=== PATIENT | female | born 1945 | race Caucasian/White ===

== ENCOUNTER 2022-04-07 12:24 | Inpatient (IN) | payer MEDICARE, MEDICAID, SELFPAY ==
[2022-04-07 12:46] VITALS: BP 190/50; PULSE 102; TEMP 36.3; O2SAT 96
--- NOTE | 2022-04-07 13:32 | P.HPPS_ITS ---
HPI Date of Service: 04/07/22 Chief Complaint: Major Depressive D/O Recurrent Episode Etc Sources of Information: patient interviewed, chart reviewed and crisis/core team assessment reviewed HPI Subjective Notes: Baptiste Warning and Conditional Voluntary Narrative: The patient is a 76-year-old female, , mother of 2 adult children, living alone, with a very long history of major depressive disorder recurrent episode with several prior admissions into the hospital and state hospitals. She had been on disability since she was an adult. The patient reported that she has been stable for several years and see me per main and recently, she had an appointment with a prescriber and started on citalopram and she reported that for the 1st 2 or 3 days she was doing great but then later on she complained of racing thoughts increased energy and she stop it since she review the booklet that she cannot use tricyclic antidepressants with SSRIs. The patient reported that she started getting depressed on October last year with depressed mood, anhedonia lack of energy and later on she reported increased anxiety. She has reported sporadic episodes of racing thoughts, increased irritability, increased psychomotor agitation and poor sleep. She adamantly denied auditory hallucinations visual hallucinations or paranoia. During the intake interview, the patient reported the symptoms she has episodes of ballistic movements and spontaneous crying and yelling. While we were interviewing her she performed very dramatically a couple of times that the behavior is a peer since we were not paying attention to her. She walked herself into the emergency room and reported that he was having suicidal thoughts. Since she was not able to contract for safety was transferring to this facility for psychiatric stabilization. Past Psychiatric History: The patient reported that she had a lengthy history of major depressive disorder with several admissions into the hospital, more than 20 and even 3 admissions for long-term on state hospitals at [facility] and [facility]. She has an appointment for another provider at [facility]. Medical Evaluation Reviewed: Yes Diagnostics Vital Signs (24Hr): Vital Signs - 24 hr 04/07/22 12:46 Temperature 97.4 F Pulse Rate 102 H Blood Pressure 190/50 H Pulse Oximetry 96 Oxygen Delivery Method Room Air Meds/Allergies Meds Home Medications Medication Instructions Recorded Confirmed Type Cardizem CD 240 mg PO DAILY 04/07/22 04/07/22 History citalopram 20 mg PO DAILY 04/07/22 04/07/22 History desipramine 50 mg tablet 50 mg PO BEDTIME 04/07/22 04/07/22 History hydroxyzine HCl 25 mg tablet 25 mg PO BEDTIME 04/07/22 04/07/22 History oxybutynin chloride 5 mg 5 mg PO DAILY 04/07/22 04/07/22 History tablet,extended release 24 hr rosuvastatin 10 mg tablet 10 mg PO DAILY 04/07/22 04/07/22 History Allergies Allergies Allergy/AdvReac Type Severity Reaction Status Date / Time quetiapine [From Seroquel] Allergy Itching Verified 04/07/22 14:36 sulfamethoxazole Allergy Itching Verified 04/07/22 14:36 [From Bactrim] trazodone Allergy Weakness Verified 04/07/22 14:36 trimethoprim [From Bactrim] Allergy Itching Verified 04/07/22 14:36 baclofen AdvReac Shakiness Verified 04/07/22 14:36 ibuprofen AdvReac Abdominal Verified 04/07/22 14:36 Pain nitrofurantoin AdvReac Weakness Verified 04/07/22 14:36 omeprazole AdvReac Unknown Verified 04/07/22 14:36 ranitidine [From Zantac] AdvReac Weakness Verified 04/07/22 14:36 Mental Status Exam Mental Status Exam Patient Appearance: Appropriate Patient Orientation: Person and Situation Level of Consciousness: Awake and Appropriate Patient Behavior: Guarded and Passive Mood Description: Appropriate and Depressed Affect Description: Constricted and Nervous Patient Cognition Impaired: No Ability to Follow Directions: Good Speech Pattern: Clear Hallucinations: None Delusions: Not Present Thought Process: Linear Thought Content: positive for [place] and positive for Circumstantial Judgement: Fair Assessment & Plan Assessment & Plan (1) Major depressive disorder: Status: Acute Code(s): F32.9 - Major depressive disorder, single episode, unspecified Plan The patient is an elderly female with a past history of major depressive disorder with several prior admissions into the hospital with some cluster B personality traits admitted for exacerbation of depression in the context of medication changes. She has been decompensating since October last year. Plan 1. Gather collateral information. 2. 50 minutes checks. 3. Start this imipramine 25 mg p.o. q.h.s. for the next 3 days. 4. We discussed at length risks, benefits, side-effects and alternatives and she agreed to tried a low dose of a mood stabilizer Zyprexa 2.5 p.o. q.h.s. at night to target insomnia, mood lability. 5. We will reassess results. Patient educated on: diagnosis and medical condition Informed Consent: understands Reason for continued inpatient stay Substantial Risk for: harm to self, inability to function, rapid decompensation and med/psych decompensation Statement Statement: I have reviewed the history and physical and performed a pertinent examination on my patient. No changes have occurred unless specified. If the History and Physical was not performed prior to admission, the Hospitalist's service will be consulted for completing the admission physical. Time Spent With Patient Time: Total time managing care of this patient today __45__ minutes.
[2022-04-07 15:40] VITALS: BP 150/90; PULSE 105; RESP 18; TEMP 36.3; O2SAT 96
--- NOTE | 2022-04-07 15:56 | HO.PM.IMCN ---
History of Present Illness Data of Consult Service Date: 04/07/22 Primary Care Provider: Nonstaff Physician GER[place] Reason for consult: Admission H&P Pt is a 76-year-old female with a PMH significant for tachycardia, HLD, overactive bladder, and seasonal affective disorder who is seen for an admission history and physical. Pt states she has a history of tachycardia for which she takes cardizem. Complains of chronic exhaustion and constipation. Pt has no acute medical complaints. Denies chest pain/pressure, palpitations. No shortness of breath. Denies fever, chills, nausea, vomiting, abdominal pain. No diarrhea. Denies headache or vision changes. Review of Systems Review of Systems: Chronic constipation Chronic exhaustion Denies chest pain/pressure, palpitations No abdominal pain Denies shortness of breath Yes all other systems are reviewed and are negative [facility] Social History Household Members: None Housing: Apartment Do you presently have visiting nurse or other home services: No Patient Tobacco Use Status: Former Tobacco user Quit Date: 04/05/22 Tobacco use type: Cigarette Cigarettes Per Day: 2 Years Smoked: 40 Smoked in Last 30 Days: Yes Patient Interested in Nicotine Replacement: No Patient Given Instructions on How to Stop Smoking: Yes Date Education Initiated: 04/07/22 Second Hand Smoke Exposure: No Use of substances other than those prescribed or required for medical reasons: No Any prior treatment program specific to substance use: No Have you been hit, kicked, punched, or otherwise hurt by someone within the past year? If so, by whom?: No Do you feel safe in your current relationship?: No Current Relationship Is there a partner from a previous relationship who is making you feel unsafe now?: No Are you made to feel afraid or neglected: No Advance Directives: Yes Advance Directives Information Provided: No Advance Directives on File: No Do you have thoughts of harming others: None Do you have a plan to hurt others: No Plan Recently lost weight without trying: No Eating poorly because of decreased appetite: No Nutrition Risks: No Nutritional Risk Patient : No : No Poor oral hygiene: No Sexual orientation: Straight/Heterosexual Meds Allergies Allergy/AdvReac Type Severity Reaction Status Date / Time quetiapine [From Seroquel] Allergy Itching Verified 04/07/22 14:36 sulfamethoxazole Allergy Itching Verified 04/07/22 14:36 [From Bactrim] trazodone Allergy Weakness Verified 04/07/22 14:36 trimethoprim [From Bactrim] Allergy Itching Verified 04/07/22 14:36 baclofen AdvReac Shakiness Verified 04/07/22 14:36 ibuprofen AdvReac Abdominal Verified 04/07/22 14:36 Pain nitrofurantoin AdvReac Weakness Verified 04/07/22 14:36 omeprazole AdvReac Unknown Verified 04/07/22 14:36 ranitidine [From Zantac] AdvReac Weakness Verified 04/07/22 14:36 Active Medications: Current Medications Acetaminophen (Acetaminophen 325 Mg Tablet) 650 mg PO Q6H PRN PRN Reason: Headache/Pain Mild Scale (1-3) Al Hydroxide/Mg Hydroxide (Magnesium Hydrox/Alum Hydrox 30 Ml Oral.Susp) 30 ml PO Q6H PRN PRN Reason: Heartburn/Nausea Hydroxyzine HCl (Hydroxyzine Hcl 25 Mg Tablet) 25 mg PO Q6H PRN PRN Reason: Anxiety Magnesium Hydroxide (Milk Of Magnesia 30 Ml Oral.Susp) 30 ml PO DAILY PRN PRN Reason: Constipation Trazodone HCl (Trazodone Hcl 50 Mg Tablet) 50 mg PO BEDTIME MRX1 PRN PRN Reason: Insomnia Home Medications Medication Instructions Recorded Confirmed Last Taken Type Cardizem CD 240 mg PO DAILY 04/07/22 04/07/22 Unknown History citalopram 20 mg PO DAILY 04/07/22 04/07/22 Unknown History desipramine 50 mg tablet 50 mg PO BEDTIME 04/07/22 04/07/22 Unknown History hydroxyzine HCl 25 mg tablet 25 mg PO BEDTIME 04/07/22 04/07/22 Unknown History oxybutynin chloride 5 mg 5 mg PO DAILY 04/07/22 04/07/22 Unknown History tablet,extended release 24 hr rosuvastatin 10 mg tablet 10 mg PO DAILY 04/07/22 04/07/22 Unknown History Physical Exam Vital Signs and Narrative: Vital Signs: Last Vital Signs Temp 97.4 F 04/07/22 15:40 Pulse 105 H 04/07/22 15:40 Resp 18 04/07/22 15:40 BP 150/90 H 04/07/22 15:40 Pulse Ox 96 04/07/22 15:40 O2 Del Method 04/07/22 15:40 General: AOx3, no acute distress Resp: CTA bilaterally CVS: S1, S2, regularly irregular GI: +BS, NT, no distention Skin: No rash Neuro: Cranial nerves II-XII grossly intact. Motor grossly intact Extremities: No edema Psych: Appropriate affect Assessment and Plan (1) PAC (premature atrial contraction): Status: Acute (2) Routine history and physical examination of adult: Status: Acute Plan Pt is a 76-year-old female with a PMH significant for tachycardia, HLD, overactive bladder, and seasonal affective disorder who is seen for an admission history and physical. Pt states she has a history of tachycardia for which she takes cardizem. Complains of chronic exhaustion and constipation. Pt has no acute medical complaints. Tachycardia Patient states she has a history of tachycardia, denies any arrhythmias Physical exam reveals regularly irregular rhythm, most likely PACs Chart review shows EKG with PACs Continue Cardizem HLD Continue rosuvastatin Overactive bladder Continue oxybutynin Mental health Plan as per psychiatry team Thank you for allowing us to participate in the care of this patient. Signing off at this time. Please let us know if there are any acute questions or concerns. Time Spent With Patient Time: Total time managing care of this patient today ____ minutes.
--- NOTE | 2022-04-07 17:04 | PC.ADMIT ---
Patient is a 76 y/o Chadian speaking female admitted on a CV from [facility] at 1230. Pt presented to the ED endorsing increased anxiety, depressed, and SI related to a response to her antidepressant. Since starting her Citaloprom pt is reporting side effects including, memory loss, poor sleep,confusion, SOB, and ballistic movements. Pt is A&O x4. The pt was calm and cooperative during the admission process. Her mood is depressed with a congruent affect. Pt denies SI/HI/AH/VH at this time and would come to staff if this changes. She reports a good appetite , but has difficulty getting to sleep and staying asleep. Pt is reporting that she yells out and has jerky movements all night. Pt was witnessed having these movements while awake. The pt would like to stop taking this medication and start a new medication to help with her depression. PT has a dx of MDD; severe, and Anxiety d/o. Pt reports 5 suicide attempts and self harm behavior, cutting and burning self with cigarettes years ago. 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 Medication reconciliation was completed with the pharmacy.
[2022-04-07 19:40] VITALS: BP 142/74; PULSE 98; RESP 18; TEMP 36.2; O2SAT 97
[2022-04-07] MEDS: hydrOXYzine HCL 25 MG TABLET PO (21:37)
[2022-04-07] MEDS: traZODone HCL 50 MG TABLET PO ×2 (22:11→23:33)
[2022-04-08 06:00] VITALS: BP 135/79; PULSE 102; RESP 18; TEMP 35.7; O2SAT 96
[2022-04-08 07:46] LABS: Alanine Aminotransferase 24 U/L (0-31); Albumin Level 4.1 g/dL (3.5-5.0); Alkaline Phosphatase 73 U/L (39-117); Anion Gap 18 (12-20); Aspartate Amino Transferase 16 U/L (5-31); Bilirubin Total 0.4 mg/dL (0.0-1.0); Blood Urea Nitrogen 16 mg/dL (9-16); Carbon Dioxide 21 mmol/L (22-29); Chloride 112 mmol/L (96-108); Cholesterol 143 mg/dL; Estimated Glomerular Filt Rate 57; Glucose Fasting 113 mg/dL (60-99); HDL Cholesterol 43 mg/dL; LDL Cholesterol Calculated 71 mg/dl; Potassium 4.6 mmol/L (3.3-5.1); Sodium 146 mmol/L (135-145); Total Protein 6.5 g/dL (6.5-8.0); Triglycerides 145 mg/dL
[2022-04-08] MEDS: Atorvastatin Calcium 40 MG TABLET PO (10:29)
[2022-04-08] MEDS: dilTIAZem HCL CD 240 MG CAP.ER.DEG PO (10:29)
[2022-04-08] MEDS: oxyBUTYnin chloride ER 5 MG TAB.ER.24 PO (10:30)
--- NOTE | 2022-04-08 11:42 | HO.PSYCHPN ---
Subjective Subjective Date of Service: 04/08/22 Reason For Visit: Major Depressive D/O Recurrent Episode Etc Interim History: asking for colace and jamilah gum. doesn't want zyprexa in the morning, agreeable to take it at HS. no other complaints or requests. per staff, slept after meds for 7 hours. sometimes crying and yelling. Mental Status Exam Mental Status Exam Patient Appearance: Appropriate Patient Orientation: Person and Situation Level of Consciousness: Awake and Appropriate Patient Behavior: Guarded and Passive Mood Description: Appropriate and Depressed Affect Description: Constricted and Nervous Patient Cognition Impaired: No Ability to Follow Directions: Good Speech Pattern: Clear Hallucinations: None Delusions: Not Present Thought Process: Linear Thought Content: positive for [place] and positive for Circumstantial Judgement: Fair Diagnostics Vital Signs (24Hr): Vital Signs - 24 hr 04/07/22 12:46 04/07/22 15:40 04/07/22 19:40 Temperature 97.4 F 97.4 F 97.2 F Pulse Rate 102 H 105 H 98 Respiratory Rate 18 18 Blood Pressure 190/50 H 150/90 H 142/74 H Pulse Oximetry 96 96 97 Oxygen Delivery Method Room Air Room Air Room Air 04/07/22 19:40 Temperature 97.2 F Pulse Rate 98 Respiratory Rate 18 Blood Pressure 142/74 H Pulse Oximetry 97 Oxygen Delivery Method Room Air Labs 04/08/22 06:30 Labs: Laboratory Results - last 48 hr 04/08/22 06:30 Sodium 146 H Potassium 4.6 Chloride 112 H Carbon Dioxide 21 L Anion Gap 18 BUN 16 Creatinine 0.96 Estim Creat Clear Calc TNP Estimated GFR 57 Fasting Glucose 113 H Calcium 9.6 Total Bilirubin 0.4 AST 16 ALT 24 Alkaline Phosphatase 73 Total Protein 6.5 Albumin 4.1 Triglycerides 145 Cholesterol 143 LDL Cholesterol, Calc 71 HDL Cholesterol 43 Medications Medications Current Medications Acetaminophen (Acetaminophen 325 Mg Tablet) 650 mg PO Q6H PRN PRN Reason: Headache/Pain Mild Scale (1-3) Al Hydroxide/Mg Hydroxide (Magnesium Hydrox/Alum Hydrox 30 Ml Oral.Susp) 30 ml PO Q6H PRN PRN Reason: Heartburn/Nausea Atorvastatin Calcium (Atorvastatin Calcium 40 Mg Tablet) 40 mg PO DAILY [facility] Last Admin: 04/08/22 10:29 Dose: 40 mg Desipramine HCl (Desipramine Hcl 25 Mg Tablet) 25 mg PO BEDTIME [facility] Last Admin: 04/07/22 21:38 Dose: Not Given Diltiazem HCl (Diltiazem Hcl Cd 240 Mg Cap.Er.Deg) 240 mg PO DAILY [facility] Last Admin: 04/08/22 10:29 Dose: 240 mg Docusate Sodium (Docusate Sodium 100 Mg Capsule) 100 mg PO BID [facility] Hydroxyzine HCl (Hydroxyzine Hcl 25 Mg Tablet) 25 mg PO Q6H PRN PRN Reason: Anxiety Hydroxyzine HCl (Hydroxyzine Hcl 25 Mg Tablet) 25 mg PO BEDTIME [facility] Last Admin: 04/07/22 21:37 Dose: 25 mg Magnesium Hydroxide (Milk Of Magnesia 30 Ml Oral.Susp) 30 ml PO DAILY PRN PRN Reason: Constipation Nicotine Polacrilex (Nicotine Polacrilex 2 Mg Gum) 2 mg BUCCAL Q2H PRN PRN Reason: Nicotine Cravings Olanzapine (Olanzapine 2.5 Mg Tablet) 2.5 mg PO BEDTIME [facility] Oxybutynin Chloride (Oxybutynin Chloride Er 5 Mg Tab.Er.24) 5 mg PO DAILY [facility] Last Admin: 04/08/22 10:30 Dose: 5 mg Trazodone HCl (Trazodone Hcl 50 Mg Tablet) 50 mg PO BEDTIME MRX1 PRN PRN Reason: Insomnia Last Admin: 04/07/22 23:33 Dose: 50 mg Allergies Allergies Allergy/AdvReac Type Severity Reaction Status Date / Time quetiapine [From Seroquel] Allergy Itching Verified 04/07/22 14:36 sulfamethoxazole Allergy Itching Verified 04/07/22 14:36 [From Bactrim] trazodone Allergy Weakness Verified 04/07/22 14:36 trimethoprim [From Bactrim] Allergy Itching Verified 04/07/22 14:36 baclofen AdvReac Shakiness Verified 04/07/22 14:36 ibuprofen AdvReac Abdominal Verified 04/07/22 14:36 Pain nitrofurantoin AdvReac Weakness Verified 04/07/22 14:36 omeprazole AdvReac Unknown Verified 04/07/22 14:36 ranitidine [From Zantac] AdvReac Weakness Verified 04/07/22 14:36 Assessment & Plan Assessment & Plan (1) Major depressive disorder: Status: Acute Code(s): F32.9 - Major depressive disorder, single episode, unspecified Plan The patient is an elderly female with a past history of major depressive disorder with several prior admissions into the hospital with some cluster B personality traits admitted for exacerbation of depression in the context of medication changes. She has been decompensating since October last year. Plan 1. Gather collateral information. 2. 50 minutes checks. 3. Start this imipramine 25 mg p.o. q.h.s. for the next 3 days. 4. We discussed at length risks, benefits, side-effects and alternatives and she agreed to tried a low dose of a mood stabilizer Zyprexa 2.5 p.o. q.h.s. at night to target insomnia, mood lability. 5. We will reassess results. 04/08: change zyprexa 2.5 mg from daily to QHS. start nicotine gum 2 mg Q2H PRN. start colace 100 mg PO BID. otherwise continue current mgmt. Reason for contiued inpatient stay Substantial Risk for: harm to self Time Spent With Patient Time: Total time managing care of this patient today __25__ minutes.
[2022-04-08] MEDS: Docusate Sodium 100 MG CAPSULE PO ×2 (14:08→21:25)
[2022-04-08] MEDS: Nicotine Polacrilex 2 MG GUM BUCCAL ×2 (14:08→17:45)
[2022-04-08 18:44] VITALS: BP 159/92; PULSE 92; RESP 16; TEMP 36.3; O2SAT 94
[2022-04-08] MEDS: OLANZapine 2.5 MG TABLET PO (21:25)
[2022-04-08] MEDS: hydrOXYzine HCL 25 MG TABLET PO (21:25)
[2022-04-08] MEDS: traZODone HCL 50 MG TABLET PO ×2 (21:29→22:52)
[2022-04-08 22:42] LABS: Calcium 8.5 mg/dL (8.4-10.2)
[2022-04-09 08:00] VITALS: BP 115/75; PULSE 96; RESP 16; TEMP 37; O2SAT 98
[2022-04-09] MEDS: Atorvastatin Calcium 40 MG TABLET PO (08:12)
[2022-04-09] MEDS: Docusate Sodium 100 MG CAPSULE PO ×2 (08:13→20:30)
[2022-04-09] MEDS: dilTIAZem HCL CD 240 MG CAP.ER.DEG PO (08:13)
[2022-04-09] MEDS: Nicotine Polacrilex 2 MG GUM BUCCAL (09:21)
--- NOTE | 2022-04-09 11:38 | HO.PSYCHPN ---
Subjective Subjective Date of Service: 04/09/22 Reason For Visit: Major Depressive D/O Recurrent Episode Etc Interim History: calm, cooperative, needy. asking for gum to be 0.5 pieces as one piece is overstimulating. states she slept well last night and without yelling out, which she feels quite hopeful about. concerned she is having trouble seeing or walking as well as usual the past couple of days. aware this is prior to starting zyprexa. per staff, slept 8 hours with traz and olanz. no yelling last night. Mental Status Exam Mental Status Exam Patient Appearance: Appropriate Patient Orientation: Person and Situation Level of Consciousness: Awake and Appropriate Patient Behavior: Guarded and Passive Mood Description: Appropriate and Depressed Affect Description: Constricted and Nervous Patient Cognition Impaired: No Ability to Follow Directions: Good Speech Pattern: Clear Hallucinations: None Delusions: Not Present Thought Process: Linear Thought Content: positive for [place] and positive for Circumstantial Judgement: Fair Diagnostics Vital Signs (24Hr): Vital Signs - 24 hr 04/08/22 18:44 04/09/22 08:00 Temperature 97.4 F 98.6 F Pulse Rate 92 96 Respiratory Rate 16 16 Blood Pressure 159/92 H 115/75 Pulse Oximetry 94 98 Oxygen Delivery Method Room Air Room Air Labs 04/08/22 06:30 Labs: Laboratory Results - last 48 hr 04/08/22 06:30 Sodium 146 H Potassium 4.6 Chloride 112 H Carbon Dioxide 21 L Anion Gap 18 BUN 16 Creatinine 0.96 Estim Creat Clear Calc TNP Estimated GFR 57 Fasting Glucose 113 H Calcium 8.5 Total Bilirubin 0.4 AST 16 ALT 24 Alkaline Phosphatase 73 Total Protein 6.5 Albumin 4.1 Triglycerides 145 Cholesterol 143 LDL Cholesterol, Calc 71 HDL Cholesterol 43 Medications Medications Current Medications Acetaminophen (Acetaminophen 325 Mg Tablet) 650 mg PO Q6H PRN PRN Reason: Headache/Pain Mild Scale (1-3) Al Hydroxide/Mg Hydroxide (Magnesium Hydrox/Alum Hydrox 30 Ml Oral.Susp) 30 ml PO Q6H PRN PRN Reason: Heartburn/Nausea Atorvastatin Calcium (Atorvastatin Calcium 40 Mg Tablet) 40 mg PO DAILY [facility] Last Admin: 04/09/22 08:12 Dose: 40 mg Desipramine HCl (Desipramine Hcl 25 Mg Tablet) 25 mg PO BEDTIME [facility] Last Admin: 04/08/22 21:25 Dose: 25 mg Diltiazem HCl (Diltiazem Hcl Cd 240 Mg Cap.Er.Deg) 240 mg PO DAILY [facility] Last Admin: 04/09/22 08:13 Dose: 240 mg Docusate Sodium (Docusate Sodium 100 Mg Capsule) 100 mg PO BID [facility] Last Admin: 04/09/22 08:13 Dose: 100 mg Hydroxyzine HCl (Hydroxyzine Hcl 25 Mg Tablet) 25 mg PO Q6H PRN PRN Reason: Anxiety Hydroxyzine HCl (Hydroxyzine Hcl 25 Mg Tablet) 25 mg PO BEDTIME [facility] Last Admin: 04/08/22 21:25 Dose: 25 mg Magnesium Hydroxide (Milk Of Magnesia 30 Ml Oral.Susp) 30 ml PO DAILY PRN PRN Reason: Constipation Nicotine Polacrilex (Nicotine Polacrilex 2 Mg Gum) 1 mg BUCCAL Q2H PRN PRN Reason: Nicotine Cravings Olanzapine (Olanzapine 2.5 Mg Tablet) 2.5 mg PO BEDTIME [facility] Last Admin: 04/08/22 21:25 Dose: 2.5 mg Olanzapine (Olanzapine 2.5 Mg Tablet) 2.5 mg PO BEDTIME PRN PRN Reason: insomnia Oxybutynin Chloride (Oxybutynin Chloride Er 5 Mg Tab.Er.24) 5 mg PO DAILY [facility] Last Admin: 04/09/22 08:13 Dose: Not Given Trazodone HCl (Trazodone Hcl 50 Mg Tablet) 50 mg PO BEDTIME PRN PRN Reason: Insomnia Allergies Allergies Allergy/AdvReac Type Severity Reaction Status Date / Time quetiapine [From Seroquel] Allergy Itching Verified 04/07/22 14:36 sulfamethoxazole Allergy Itching Verified 04/07/22 14:36 [From Bactrim] trazodone Allergy Weakness Verified 04/07/22 14:36 trimethoprim [From Bactrim] Allergy Itching Verified 04/07/22 14:36 baclofen AdvReac Shakiness Verified 04/07/22 14:36 ibuprofen AdvReac Abdominal Verified 04/07/22 14:36 Pain nitrofurantoin AdvReac Weakness Verified 04/07/22 14:36 omeprazole AdvReac Unknown Verified 04/07/22 14:36 ranitidine [From Zantac] AdvReac Weakness Verified 04/07/22 14:36 Assessment & Plan Assessment & Plan (1) Major depressive disorder: Status: Acute Code(s): F32.9 - Major depressive disorder, single episode, unspecified Plan The patient is an elderly female with a past history of major depressive disorder with several prior admissions into the hospital with some cluster B personality traits admitted for exacerbation of depression in the context of medication changes. She has been decompensating since October last year. Plan 1. Gather collateral information. 2. 50 minutes checks. 3. Start this imipramine 25 mg p.o. q.h.s. for the next 3 days. 4. We discussed at length risks, benefits, side-effects and alternatives and she agreed to tried a low dose of a mood stabilizer Zyprexa 2.5 p.o. q.h.s. at night to target insomnia, mood lability. 5. We will reassess results. 04/08: change zyprexa 2.5 mg from daily to QHS. start nicotine gum 2 mg Q2H PRN. start colace 100 mg PO BID. otherwise continue current mgmt. 04/09: add zyprexa 2.5 QHS PRN, otherwise continue current mgmt. slept well, no yelling last night. Reason for contiued inpatient stay Substantial Risk for: inability to function and rapid decompensation Time Spent With Patient Time: Total time managing care of this patient today __25__ minutes.
[2022-04-09 13:45] VITALS: BMI 25.7
[2022-04-09 18:00] VITALS: BP 161/87; PULSE 75; RESP 17; TEMP 36.5; O2SAT 96
[2022-04-09] MEDS: hydrOXYzine HCL 25 MG TABLET PO (20:31)
[2022-04-09] MEDS: OLANZapine 2.5 MG TABLET PO (20:31)
[2022-04-09] MEDS: Magnesium Hydrox/Alum Hydrox 30 ML ORAL.SUSP PO (21:04)
[2022-04-10 07:30] VITALS: BP 143/65; PULSE 96; RESP 16; TEMP 36.2; O2SAT 97
--- NOTE | 2022-04-10 08:26 | HO.PSYCHPN ---
Subjective Subjective Date of Service: 04/10/22 Reason For Visit: Major Depressive D/O Recurrent Episode Etc Subjective Notes: Conditional Voluntary Interim History: The nursing staff reported the patient had being anxious she most of the day he to her change in medications. The patient has refused the troponin denies suicidal ideation at this moment. She had been physio in the unit and she has been medication compliant. According to the staff she complained of racing thoughts all night. She had Maalox last night due to gastric discomfort. On interview, the patient remains anxious dysphoric but able to contract for safety. We discussed the plan and she agreed to increase her antidepressant at night back. Mental Status Exam Mental Status Exam Patient Appearance: Well Grooomed and Appropriate Patient Orientation: Person and Situation Level of Consciousness: Awake Patient Behavior: Guarded and Passive Mood Description: Withdrawn Affect Description: Constricted Patient Cognition Impaired: No Ability to Follow Directions: Good Speech Pattern: Clear Hallucinations: None Delusions: Not Present Thought Process: Distracted Thought Content: positive for [place] and positive for Circumstantial Judgement: Fair Diagnostics Vital Signs (24Hr): Vital Signs - 24 hr 04/09/22 18:00 Temperature 97.7 F Pulse Rate 75 Respiratory Rate 17 Blood Pressure 161/87 H Pulse Oximetry 96 Oxygen Delivery Method Room Air BMI result Body Mass Index 25.7 Labs 04/08/22 06:30 Labs: Laboratory Results - last 48 hr 04/08/22 06:30 Calcium 8.5 Medications Medications Current Medications Acetaminophen (Acetaminophen 325 Mg Tablet) 650 mg PO Q6H PRN PRN Reason: Headache/Pain Mild Scale (1-3) Al Hydroxide/Mg Hydroxide (Magnesium Hydrox/Alum Hydrox 30 Ml Oral.Susp) 30 ml PO Q6H PRN PRN Reason: Heartburn/Nausea Last Admin: 04/09/22 21:04 Dose: 30 ml Atorvastatin Calcium (Atorvastatin Calcium 40 Mg Tablet) 40 mg PO DAILY [facility] Last Admin: 04/09/22 08:12 Dose: 40 mg Desipramine HCl (Desipramine Hcl 25 Mg Tablet) 25 mg PO BEDTIME [facility] Last Admin: 04/09/22 20:30 Dose: 25 mg Diltiazem HCl (Diltiazem Hcl Cd 240 Mg Cap.Er.Deg) 240 mg PO DAILY [facility] Last Admin: 04/09/22 08:13 Dose: 240 mg Docusate Sodium (Docusate Sodium 100 Mg Capsule) 100 mg PO BID [facility] Last Admin: 04/09/22 20:30 Dose: 100 mg Hydroxyzine HCl (Hydroxyzine Hcl 25 Mg Tablet) 25 mg PO Q6H PRN PRN Reason: Anxiety Hydroxyzine HCl (Hydroxyzine Hcl 25 Mg Tablet) 25 mg PO BEDTIME [facility] Last Admin: 04/09/22 20:31 Dose: 25 mg Magnesium Hydroxide (Milk Of Magnesia 30 Ml Oral.Susp) 30 ml PO DAILY PRN PRN Reason: Constipation Nicotine Polacrilex (Nicotine Polacrilex 2 Mg Gum) 1 mg BUCCAL Q2H PRN PRN Reason: Nicotine Cravings Olanzapine (Olanzapine 2.5 Mg Tablet) 2.5 mg PO BEDTIME [facility] Last Admin: 04/09/22 20:31 Dose: 2.5 mg Olanzapine (Olanzapine 2.5 Mg Tablet) 2.5 mg PO BEDTIME PRN PRN Reason: insomnia Oxybutynin Chloride (Oxybutynin Chloride Er 5 Mg Tab.Er.24) 5 mg PO DAILY [facility] Last Admin: 04/09/22 08:13 Dose: Not Given Trazodone HCl (Trazodone Hcl 50 Mg Tablet) 50 mg PO BEDTIME PRN PRN Reason: Insomnia Allergies Allergies Allergy/AdvReac Type Severity Reaction Status Date / Time quetiapine [From Seroquel] Allergy Itching Verified 04/07/22 14:36 sulfamethoxazole Allergy Itching Verified 04/07/22 14:36 [From Bactrim] trazodone Allergy Weakness Verified 04/07/22 14:36 trimethoprim [From Bactrim] Allergy Itching Verified 04/07/22 14:36 baclofen AdvReac Shakiness Verified 04/07/22 14:36 ibuprofen AdvReac Abdominal Verified 04/07/22 14:36 Pain nitrofurantoin AdvReac Weakness Verified 04/07/22 14:36 omeprazole AdvReac Unknown Verified 04/07/22 14:36 ranitidine [From Zantac] AdvReac Weakness Verified 04/07/22 14:36 Assessment & Plan Assessment & Plan (1) Major depressive disorder: Status: Acute Code(s): F32.9 - Major depressive disorder, single episode, unspecified Plan The patient is an elderly female with a past history of major depressive disorder with several prior admissions into the hospital with some cluster B personality traits admitted for exacerbation of depression in the context of medication changes. She has been decompensating since October last year. Plan 1. Gather collateral information. 2. 50 minutes checks. 3. Start desimipramine 25 mg p.o. q.h.s. for the next 3 days. He increase otoniel imipramine up to 50 mg p.o. q.h.s. on April 10. 4. We discussed at length risks, benefits, side-effects and alternatives and she agreed to tried a low dose of a mood stabilizer Zyprexa 2.5 p.o. q.h.s. at night to target insomnia, mood lability. add zyprexa 2.5 QHS PRN, on April 09 5. We will reassess results. Reason for contiued inpatient stay Substantial Risk for: inability to function, rapid decompensation and med/psych decompensation Time Spent With Patient Time: Total time managing care of this patient today _20___ minutes.
[2022-04-10] MEDS: oxyBUTYnin chloride ER 5 MG TAB.ER.24 PO (10:51)
[2022-04-10] MEDS: Docusate Sodium 100 MG CAPSULE PO ×2 (10:52→20:57)
[2022-04-10] MEDS: Atorvastatin Calcium 40 MG TABLET PO (10:52)
[2022-04-10] MEDS: dilTIAZem HCL CD 240 MG CAP.ER.DEG PO (10:52)
[2022-04-10] MEDS: Nicotine Polacrilex 2 MG GUM BUCCAL (11:16)
[2022-04-10] MEDS: Magnesium Hydrox/Alum Hydrox 30 ML ORAL.SUSP PO ×2 (16:37→22:04)
[2022-04-10 18:00] VITALS: BP 143/72; PULSE 84; RESP 18; TEMP 36.4; O2SAT 98
[2022-04-10] MEDS: hydrOXYzine HCL 25 MG TABLET PO (20:58)
[2022-04-10] MEDS: OLANZapine 2.5 MG TABLET PO (20:58)
[2022-04-11 07:30] VITALS: BP 160/89; PULSE 99; RESP 16; TEMP 36.3; O2SAT 94
[2022-04-11] MEDS: Docusate Sodium 100 MG CAPSULE PO ×2 (10:33→20:44)
[2022-04-11] MEDS: dilTIAZem HCL CD 240 MG CAP.ER.DEG PO (10:33)
[2022-04-11] MEDS: oxyBUTYnin chloride ER 5 MG TAB.ER.24 PO (10:33)
[2022-04-11] MEDS: Atorvastatin Calcium 40 MG TABLET PO (10:33)
--- NOTE | 2022-04-11 12:14 | P.PNPSI_ITS ---
Subjective Subjective Date of Service: 04/11/22 Reason For Visit: Major Depressive D/O Recurrent Episode Etc Subjective Notes: Conditional Voluntary Interim History: The nursing staff reported the patient slept well she reported less agitation and involuntary movements. The social worker assistant has contact [facility] for her follow-up. On interview the patient denies new symptoms no side effects with the current medications. Mental Status Exam Mental Status Exam Patient Appearance: Well Grooomed and Appropriate Patient Orientation: Person and Situation Level of Consciousness: Awake and Appropriate Patient Behavior: Guarded and Passive Mood Description: Withdrawn Affect Description: Constricted Patient Cognition Impaired: Yes Ability to Follow Directions: Good Speech Pattern: Clear Hallucinations: None Delusions: Not Present Thought Process: Distracted and Linear Thought Content: positive for Circumstantial Judgement: Fair Diagnostics Vital Signs (24Hr): Vital Signs - 24 hr 04/10/22 18:00 Temperature 97.5 F Pulse Rate 84 Respiratory Rate 18 Blood Pressure 143/72 H Pulse Oximetry 98 Oxygen Delivery Method Room Air BMI result Body Mass Index 25.7 Labs 04/08/22 06:30 Medications Medications Current Medications Acetaminophen (Acetaminophen 325 Mg Tablet) 650 mg PO Q6H PRN PRN Reason: Headache/Pain Mild Scale (1-3) Al Hydroxide/Mg Hydroxide (Magnesium Hydrox/Alum Hydrox 30 Ml Oral.Susp) 30 ml PO Q6H PRN PRN Reason: Heartburn/Nausea Last Admin: 04/10/22 22:04 Dose: 30 ml Atorvastatin Calcium (Atorvastatin Calcium 40 Mg Tablet) 40 mg PO DAILY [facility] Last Admin: 04/11/22 10:33 Dose: 40 mg Desipramine HCl (Desipramine Hcl 25 Mg Tablet) 50 mg PO BEDTIME [facility] Last Admin: 04/10/22 20:57 Dose: 50 mg Diltiazem HCl (Diltiazem Hcl Cd 240 Mg Cap.Er.Deg) 240 mg PO DAILY [facility] Last Admin: 04/11/22 10:33 Dose: 240 mg Docusate Sodium (Docusate Sodium 100 Mg Capsule) 100 mg PO BID [facility] Last Admin: 04/11/22 10:33 Dose: 100 mg Hydroxyzine HCl (Hydroxyzine Hcl 25 Mg Tablet) 25 mg PO Q6H PRN PRN Reason: Anxiety Hydroxyzine HCl (Hydroxyzine Hcl 25 Mg Tablet) 25 mg PO BEDTIME [facility] Last Admin: 04/10/22 20:58 Dose: 25 mg Magnesium Hydroxide (Milk Of Magnesia 30 Ml Oral.Susp) 30 ml PO DAILY PRN PRN Reason: Constipation Nicotine Polacrilex (Nicotine Polacrilex 2 Mg Gum) 2 mg BUCCAL Q2H PRN PRN Reason: Nicotine Cravings Last Admin: 04/10/22 11:16 Dose: 2 mg Olanzapine (Olanzapine 2.5 Mg Tablet) 2.5 mg PO BEDTIME [facility] Last Admin: 04/10/22 20:58 Dose: 2.5 mg Olanzapine (Olanzapine 2.5 Mg Tablet) 2.5 mg PO BEDTIME PRN PRN Reason: insomnia Oxybutynin Chloride (Oxybutynin Chloride Er 5 Mg Tab.Er.24) 5 mg PO DAILY [facility] Last Admin: 04/11/22 10:33 Dose: 5 mg Trazodone HCl (Trazodone Hcl 50 Mg Tablet) 50 mg PO BEDTIME PRN PRN Reason: Insomnia Allergies Allergies Allergy/AdvReac Type Severity Reaction Status Date / Time quetiapine [From Seroquel] Allergy Itching Verified 04/07/22 14:36 sulfamethoxazole Allergy Itching Verified 04/07/22 14:36 [From Bactrim] trazodone Allergy Weakness Verified 04/07/22 14:36 trimethoprim [From Bactrim] Allergy Itching Verified 04/07/22 14:36 baclofen AdvReac Shakiness Verified 04/07/22 14:36 ibuprofen AdvReac Abdominal Verified 04/07/22 14:36 Pain nitrofurantoin AdvReac Weakness Verified 04/07/22 14:36 omeprazole AdvReac Unknown Verified 04/07/22 14:36 ranitidine [From Zantac] AdvReac Weakness Verified 04/07/22 14:36 Assessment & Plan Assessment & Plan (1) Major depressive disorder: Status: Acute Code(s): F32.9 - Major depressive disorder, single episode, unspecified Plan The patient is an elderly female with a past history of major depressive disorder with several prior admissions into the hospital with some cluster B personality traits admitted for exacerbation of depression in the context of medication changes. She has been decompensating since October last year. Plan 1. Gather collateral information. 2. 50 minutes checks. 3. Start desimipramine 25 mg p.o. q.h.s. for the next 3 days. He increase otoniel imipramine up to 50 mg p.o. q.h.s. on April 10. 4. We discussed at length risks, benefits, side-effects and alternatives and she agreed to tried a low dose of a mood stabilizer Zyprexa 2.5 p.o. q.h.s. at night to target insomnia, mood lability. add zyprexa 2.5 QHS PRN, on April 09. On Apr 11, we increased Zyprexa up to 5 mg. 5. We will reassess results. 6. Add Miralax PRN constipation. Reason for contiued inpatient stay Substantial Risk for: inability to function, rapid decompensation and med/psych decompensation Time Spent With Patient Time: Total time managing care of this patient today __20__ minutes.
[2022-04-11] MEDS: Nicotine Polacrilex 2 MG GUM BUCCAL (17:56)
[2022-04-11 18:00] VITALS: BP 107/61; PULSE 99; RESP 17; TEMP 36.2; O2SAT 94
[2022-04-11] MEDS: hydrOXYzine HCL 25 MG TABLET PO (20:44)
[2022-04-11] MEDS: OLANZapine 5 MG TABLET PO (20:44)
[2022-04-11] MEDS: traZODone HCL 50 MG TABLET PO (22:33)
[2022-04-12 06:00] VITALS: BP 126/76; PULSE 91; RESP 16; TEMP 36.2; O2SAT 100
[2022-04-12] MEDS: Atorvastatin Calcium 40 MG TABLET PO (11:49)
[2022-04-12] MEDS: dilTIAZem HCL CD 240 MG CAP.ER.DEG PO (11:49)
[2022-04-12] MEDS: Docusate Sodium 100 MG CAPSULE PO ×2 (11:49→20:13)
[2022-04-12] MEDS: polyethylene glycoL 3350 17 GM POWD.PACK PO (11:54)
--- NOTE | 2022-04-12 12:13 | P.PNPSI_ITS ---
Subjective Subjective Date of Service: 04/12/22 Reason For Visit: Major Depressive D/O Recurrent Episode Etc Subjective Notes: Conditional Voluntary Interim History: The nursing staff reported the patient has verbalized no anxiety or depression she was seen out for medications and meals. The occupational therapist reported that she has good coping skills on groups. On interview the patient denies new symptoms she feels much better, yesterday we increase Zyprexa to 5 mg p.o. q.h.s. to target mood lability since she reported racing thoughts. Even though, she doesn't feel going home tomorrow but we will reassess tomorrow. Mental Status Exam Mental Status Exam Patient Appearance: Well Grooomed and Appropriate Patient Orientation: Person, Place and Situation Level of Consciousness: Awake and Appropriate Patient Behavior: Guarded and Passive Mood Description: Calm Affect Description: Calm Patient Cognition Impaired: Yes Ability to Follow Directions: Good Speech Pattern: Clear Hallucinations: None Delusions: Not Present Thought Process: Distracted and Linear Thought Content: positive for [place] and positive for Circumstantial Judgement: Fair Diagnostics Vital Signs (24Hr): Vital Signs - 24 hr 04/11/22 18:00 04/12/22 06:00 Temperature 97.1 F 97.2 F Pulse Rate 99 91 Respiratory Rate 17 16 Blood Pressure 107/61 126/76 Pulse Oximetry 94 100 Oxygen Delivery Method Room Air Room Air BMI result Body Mass Index 25.7 Labs 04/08/22 06:30 Medications Medications Current Medications Acetaminophen (Acetaminophen 325 Mg Tablet) 650 mg PO Q6H PRN PRN Reason: Headache/Pain Mild Scale (1-3) Al Hydroxide/Mg Hydroxide (Magnesium Hydrox/Alum Hydrox 30 Ml Oral.Susp) 30 ml PO Q6H PRN PRN Reason: Heartburn/Nausea Last Admin: 04/10/22 22:04 Dose: 30 ml Atorvastatin Calcium (Atorvastatin Calcium 40 Mg Tablet) 40 mg PO DAILY [facility] Last Admin: 04/12/22 11:49 Dose: 40 mg Desipramine HCl (Desipramine Hcl 25 Mg Tablet) 50 mg PO BEDTIME [facility] Last Admin: 04/11/22 20:44 Dose: 50 mg Diltiazem HCl (Diltiazem Hcl Cd 240 Mg Cap.Er.Deg) 240 mg PO DAILY [facility] Last Admin: 04/12/22 11:49 Dose: 240 mg Docusate Sodium (Docusate Sodium 100 Mg Capsule) 100 mg PO BID [facility] Last Admin: 04/12/22 11:49 Dose: 100 mg Hydroxyzine HCl (Hydroxyzine Hcl 25 Mg Tablet) 25 mg PO Q6H PRN PRN Reason: Anxiety Hydroxyzine HCl (Hydroxyzine Hcl 25 Mg Tablet) 25 mg PO BEDTIME [facility] Last Admin: 04/11/22 20:44 Dose: 25 mg Magnesium Hydroxide (Milk Of Magnesia 30 Ml Oral.Susp) 30 ml PO DAILY PRN PRN Reason: Constipation Nicotine Polacrilex (Nicotine Polacrilex 2 Mg Gum) 2 mg BUCCAL Q2H PRN PRN Reason: Nicotine Cravings Last Admin: 04/11/22 17:56 Dose: 2 mg Olanzapine (Olanzapine 2.5 Mg Tablet) 2.5 mg PO BEDTIME PRN PRN Reason: insomnia Olanzapine (Olanzapine 5 Mg Tablet) 5 mg PO BEDTIME [facility] Last Admin: 04/11/22 20:44 Dose: 5 mg Oxybutynin Chloride (Oxybutynin Chloride Er 5 Mg Tab.Er.24) 5 mg PO DAILY [facility] Last Admin: 04/12/22 11:52 Dose: Not Given Polyethylene Glycol (Polyethylene Glycol 3350 17 Gm Powd.Pack) 17 gm PO DAILY PRN PRN Reason: Constipation Last Admin: 04/12/22 11:54 Dose: 17 gm Trazodone HCl (Trazodone Hcl 50 Mg Tablet) 50 mg PO BEDTIME PRN PRN Reason: Insomnia Last Admin: 04/11/22 22:33 Dose: 50 mg Allergies Allergies Allergy/AdvReac Type Severity Reaction Status Date / Time quetiapine [From Seroquel] Allergy Itching Verified 04/07/22 14:36 sulfamethoxazole Allergy Itching Verified 04/07/22 14:36 [From Bactrim] trazodone Allergy Weakness Verified 04/07/22 14:36 trimethoprim [From Bactrim] Allergy Itching Verified 04/07/22 14:36 baclofen AdvReac Shakiness Verified 04/07/22 14:36 ibuprofen AdvReac Abdominal Verified 04/07/22 14:36 Pain nitrofurantoin AdvReac Weakness Verified 04/07/22 14:36 omeprazole AdvReac Unknown Verified 04/07/22 14:36 ranitidine [From Zantac] AdvReac Weakness Verified 04/07/22 14:36 Assessment & Plan Assessment & Plan (1) Major depressive disorder: Status: Acute Code(s): F32.9 - Major depressive disorder, single episode, unspecified Plan The patient is an elderly female with a past history of major depressive disorder with several prior admissions into the hospital with some cluster B personality traits admitted for exacerbation of depression in the context of medication changes. She has been decompensating since October last year. Plan 1. Gather collateral information. 2. 50 minutes checks. 3. Start desimipramine 25 mg p.o. q.h.s. for the next 3 days. He increase otoniel imipramine up to 50 mg p.o. q.h.s. on April 10. 4. We discussed at length risks, benefits, side-effects and alternatives and she agreed to tried a low dose of a mood stabilizer Zyprexa 2.5 p.o. q.h.s. at night to target insomnia, mood lability. add zyprexa 2.5 QHS PRN, on April 09. On Apr 11, we increased Zyprexa up to 5 mg. 5. We will reassess results. 6. Add Miralax PRN constipation. 7. Discharge for tomorrow Reason for contiued inpatient stay Substantial Risk for: inability to function, rapid decompensation and med/psych decompensation Time Spent With Patient Time: Total time managing care of this patient today __20__ minutes.
[2022-04-12 18:00] VITALS: BP 157/90; PULSE 99; RESP 18; TEMP 36.3; O2SAT 98
[2022-04-12] MEDS: hydrOXYzine HCL 25 MG TABLET PO ×2 (18:02→20:14)
[2022-04-12] MEDS: OLANZapine 5 MG TABLET PO (20:14)
[2022-04-13 06:00] VITALS: BP 134/64; PULSE 16; RESP 88; TEMP 36.3; O2SAT 97
[2022-04-13 07:00] VITALS: BMI 26.4
[2022-04-13] MEDS: Atorvastatin Calcium 40 MG TABLET PO (09:44)
[2022-04-13] MEDS: dilTIAZem HCL CD 240 MG CAP.ER.DEG PO (09:44)
[2022-04-13] MEDS: Docusate Sodium 100 MG CAPSULE PO ×2 (09:44→20:53)
--- NOTE | 2022-04-13 13:27 | HO.PSYCHPN ---
Subjective Subjective Date of Service: 04/13/22 Reason For Visit: Major Depressive D/O Recurrent Episode Etc Subjective Notes: Conditional Voluntary Interim History: The nursing staff reported the patient had been fully compliant with treatment, no side effects with current treatments. She stated that she does not feel safe to be discharged today. On interview the patient reports that she is feeling much better ready to be discharged to community tomorrow. Mental Status Exam Mental Status Exam Patient Appearance: Well Grooomed and Appropriate Patient Orientation: Person and Situation Level of Consciousness: Awake and Appropriate Patient Behavior: Cooperative Mood Description: Calm Affect Description: Constricted Patient Cognition Impaired: Yes Ability to Follow Directions: Good Speech Pattern: Clear Hallucinations: None Delusions: Not Present Thought Process: Linear Thought Content: positive for Circumstantial Judgement: Fair Diagnostics Vital Signs (24Hr): Vital Signs - 24 hr 04/12/22 18:00 04/13/22 06:00 Temperature 97.4 F 97.4 F Pulse Rate 99 16 L Respiratory Rate 18 88 H Blood Pressure 157/90 H 134/64 Pulse Oximetry 98 97 Oxygen Delivery Method Room Air Room Air BMI result Body Mass Index 26.4 Labs 04/08/22 06:30 Medications Medications Current Medications Acetaminophen (Acetaminophen 325 Mg Tablet) 650 mg PO Q6H PRN PRN Reason: Headache/Pain Mild Scale (1-3) Al Hydroxide/Mg Hydroxide (Magnesium Hydrox/Alum Hydrox 30 Ml Oral.Susp) 30 ml PO Q6H PRN PRN Reason: Heartburn/Nausea Last Admin: 04/10/22 22:04 Dose: 30 ml Atorvastatin Calcium (Atorvastatin Calcium 40 Mg Tablet) 40 mg PO DAILY [facility] Last Admin: 04/13/22 09:44 Dose: 40 mg Desipramine HCl (Desipramine Hcl 25 Mg Tablet) 50 mg PO BEDTIME [facility] Last Admin: 04/12/22 20:14 Dose: 50 mg Diltiazem HCl (Diltiazem Hcl Cd 240 Mg Cap.Er.Deg) 240 mg PO DAILY [facility] Last Admin: 04/13/22 09:44 Dose: 240 mg Docusate Sodium (Docusate Sodium 100 Mg Capsule) 100 mg PO BID [facility] Last Admin: 04/13/22 09:44 Dose: 100 mg Hydroxyzine HCl (Hydroxyzine Hcl 25 Mg Tablet) 25 mg PO Q6H PRN PRN Reason: Anxiety Last Admin: 04/12/22 18:02 Dose: 25 mg Hydroxyzine HCl (Hydroxyzine Hcl 25 Mg Tablet) 25 mg PO BEDTIME [facility] Last Admin: 04/12/22 20:14 Dose: 25 mg Magnesium Hydroxide (Milk Of Magnesia 30 Ml Oral.Susp) 30 ml PO DAILY PRN PRN Reason: Constipation Nicotine Polacrilex (Nicotine Polacrilex 2 Mg Gum) 2 mg BUCCAL Q2H PRN PRN Reason: Nicotine Cravings Last Admin: 04/11/22 17:56 Dose: 2 mg Olanzapine (Olanzapine 2.5 Mg Tablet) 2.5 mg PO BEDTIME PRN PRN Reason: insomnia Olanzapine (Olanzapine 5 Mg Tablet) 5 mg PO BEDTIME [facility] Last Admin: 04/12/22 20:14 Dose: 5 mg Oxybutynin Chloride (Oxybutynin Chloride Er 5 Mg Tab.Er.24) 5 mg PO DAILY [facility] Last Admin: 04/13/22 09:45 Dose: Not Given Polyethylene Glycol (Polyethylene Glycol 3350 17 Gm Powd.Pack) 17 gm PO DAILY PRN PRN Reason: Constipation Last Admin: 04/12/22 11:54 Dose: 17 gm Trazodone HCl (Trazodone Hcl 50 Mg Tablet) 50 mg PO BEDTIME PRN PRN Reason: Insomnia Last Admin: 04/11/22 22:33 Dose: 50 mg Allergies Allergies Allergy/AdvReac Type Severity Reaction Status Date / Time quetiapine [From Seroquel] Allergy Itching Verified 04/07/22 14:36 sulfamethoxazole Allergy Itching Verified 04/07/22 14:36 [From Bactrim] trazodone Allergy Weakness Verified 04/07/22 14:36 trimethoprim [From Bactrim] Allergy Itching Verified 04/07/22 14:36 baclofen AdvReac Shakiness Verified 04/07/22 14:36 ibuprofen AdvReac Abdominal Verified 04/07/22 14:36 Pain nitrofurantoin AdvReac Weakness Verified 04/07/22 14:36 omeprazole AdvReac Unknown Verified 04/07/22 14:36 ranitidine [From Zantac] AdvReac Weakness Verified 04/07/22 14:36 Assessment & Plan Assessment & Plan (1) Major depressive disorder: Status: Acute Code(s): F32.9 - Major depressive disorder, single episode, unspecified Plan The patient is an elderly female with a past history of major depressive disorder with several prior admissions into the hospital with some cluster B personality traits admitted for exacerbation of depression in the context of medication changes. She has been decompensating since October last year. Plan 1. Gather collateral information. 2. 50 minutes checks. 3. Start desimipramine 25 mg p.o. q.h.s. for the next 3 days. He increase otoniel imipramine up to 50 mg p.o. q.h.s. on April 10. 4. We discussed at length risks, benefits, side-effects and alternatives and she agreed to tried a low dose of a mood stabilizer Zyprexa 2.5 p.o. q.h.s. at night to target insomnia, mood lability. add zyprexa 2.5 QHS PRN, on April 09. On Apr 11, we increased Zyprexa up to 5 mg. 5. We will reassess results. 6. Add Miralax PRN constipation. 7. Discharge for tomorrow Reason for contiued inpatient stay Substantial Risk for: inability to function, rapid decompensation and med/psych decompensation Time Spent With Patient Time: Total time managing care of this patient today __30__ minutes.
--- NOTE | 2022-04-13 16:50 | PM.PSYDC ---
DS: Providers Provider Date of Service: 04/13/22 Date of admission: 04/07/22 12:24 Date of discharge: 04/14/22 Primary care physician: Nonstaff Physician Consults: 04/07/22 12:45 Consult to Hospitalist Routine Consulting Provider: Hospitalist Reason For Exam: Direct admission DS: Diagnosis Discharge Diagnosis (1) Major depressive disorder: Status: Acute DS: Medications Discharge Medications Home Medications: Home Medications Medication Instructions Recorded Confirmed Cardizem CD 240 mg PO DAILY 04/07/22 04/07/22 citalopram 20 mg PO DAILY 04/07/22 04/07/22 desipramine 50 mg tablet 50 mg PO BEDTIME 04/07/22 04/07/22 hydroxyzine HCl 25 mg tablet 25 mg PO BEDTIME 04/07/22 04/07/22 oxybutynin chloride 5 mg 5 mg PO DAILY 04/07/22 04/07/22 tablet,extended release 24 hr rosuvastatin 10 mg tablet 10 mg PO DAILY 04/07/22 04/07/22 Mental Status Exam Mental Status Exam Patient Appearance: Well Grooomed and Appropriate Patient Orientation: Person, Place, Time and Situation Level of Consciousness: Awake and Appropriate Patient Behavior: Guarded and Passive Mood Description: Calm Affect Description: Constricted Patient Cognition Impaired: Yes Ability to Follow Directions: Good Speech Pattern: Clear Hallucinations: None Delusions: Not Present Thought Process: Linear Thought Content: positive for Intact Judgement: Fair Data Data Completed and Pending Completed studies during hospitalization [Text1]: 04/08/22 06:30 Sodium 146 H Potassium 4.6 Chloride 112 H Carbon Dioxide 21 L Anion Gap 18 BUN 16 Creatinine 0.96 Estim Creat Clear Calc TNP Estimated GFR 57 Fasting Glucose 113 H Calcium 8.5 Total Bilirubin 0.4 AST 16 ALT 24 Alkaline Phosphatase 73 Total Protein 6.5 Albumin 4.1 Triglycerides 145 Cholesterol 143 LDL Cholesterol, Calc 71 HDL Cholesterol 43 DS: Summary Hospital Course Hospital Course: The patient was and initially admitted for exacerbation of depression with suicidal ideation in the context of recent change of medications. Please see the HPI note for further details. On admission we discussed risks, benefits, side-effects and alternatives and we decided to start a slow titration of Desimipramine titrated up to 50 mg p.o. daily. Also, the patient presented some hypomanic symptoms such as racing thoughts at night, increased anxiety, irritability and elated mood. We discussed at length the need of a mood stabilizer and she agreed to try Zyprexa that he was slowly titrated up to 5 mg p.o. p.o. q.h.s. without side effects and improved. The patient was able to tolerate the medication changes, no evidence of side effects, she was seen in the community and attended to groups, she was future oriented and there were no evidence of safety concerns. Since there were no safety problems, discharge planning was discussed. Aftercare was already arranged. Time spent discussing smoking cessation with patient: 3 to 10 minutes Status at Discharge Cognitive/behavioral status at discharge: At baseline Functional status at discharge: independent ambulation Overall status at discharge: patient is back to baseline Time Spent with Patient Time attestation: Total time managing care of this patient today _30___ minutes. Time spent: Less than 30 minutes Discharge Plan Discharge Anticipated Discharge Date/Time: 04/14/22 11:00 Patient Disposition: Home, Self-Care Discharge Diagnosis: Mood disorder NOS. Cluster B personality traits Referrals: Physician,Nonstaff [Primary Care Provider] - 1 Week Discharge Medications: New desipramine 25 mg Tablet 50 mg PO BEDTIME 30 Days Qty: 60 0RF hydroxyzine HCl 25 mg Tablet 25 mg PO Q6H PRN (Reason: Anxiety) Qty: 30 0RF olanzapine 5 mg Tablet 5 mg PO BEDTIME Qty: 30 0RF polyethylene glycol 3350 17 gram Powder In Packet 17 g PO DAILY PRN (Reason: Constipation) 30 Days Qty: 30 0RF Continued hydroxyzine HCl 25 mg Tablet 25 mg PO BEDTIME 30 Days Qty: 30 0RF rosuvastatin 10 mg Tablet 10 mg PO DAILY 30 Days Qty: 30 0RF Cardizem CD 240 mg PO DAILY 30 Days Qty: 30 0RF Discontinued desipramine 50 mg Tablet 50 mg PO BEDTIME oxybutynin chloride 5 mg Tablet Extended Release 24hr 5 mg PO DAILY citalopram 20 mg PO DAILY Discharge Orders: Discharge Order (Routine); Ordered 04/14/22 Ordered By: Ruben Blancas Diet: Advance to usual diet Activity on Discharge: As tolerated Stand Alone Forms: Patient Portal Discharge page Care Plan Goals: Care plan goals achieved in this admission Health Concerns: Continue treatment with outpatient providers Plan of Treatment: Continue with outpatient provider Assessment: Elderly female with a long history of depression with prior admissions into the hospital for suicidality admitted after the change of antidepressants. The patient responded fairly well with the combination of tree cyclic antidepressants and olanzapine. At this moment no safety concerns ready to be discharged in the community with follow-up providers
[2022-04-13 18:00] VITALS: BP 145/66; PULSE 77; RESP 18; TEMP 36.3; O2SAT 98
[2022-04-13] MEDS: OLANZapine 5 MG TABLET PO (20:53)
[2022-04-13] MEDS: polyethylene glycoL 3350 17 GM POWD.PACK PO (20:53)
[2022-04-13] MEDS: hydrOXYzine HCL 25 MG TABLET PO (20:53)
[2022-04-13] MEDS: Magnesium Hydrox/Alum Hydrox 30 ML ORAL.SUSP PO (20:54)
[2022-04-13] MEDS: traZODone HCL 50 MG TABLET PO ×2 (20:54→22:06)
[2022-04-14 06:00] VITALS: BP 132/82; PULSE 98; RESP 20; TEMP 36.7; O2SAT 98
[2022-04-14] MEDS: Docusate Sodium 100 MG CAPSULE PO (08:08)
[2022-04-14] MEDS: oxyBUTYnin chloride ER 5 MG TAB.ER.24 PO (08:08)
[2022-04-14] MEDS: Atorvastatin Calcium 40 MG TABLET PO (08:08)
[2022-04-14] MEDS: dilTIAZem HCL CD 240 MG CAP.ER.DEG PO (08:08)
--- NOTE | 2022-04-14 11:44 | PC.NURSE ---
Pt. alert and oriented X 4. Reports readiness with some apprehension for discharge. Medications and discharge instructions discussed with pt., who verbalized understanding. Pt. left unit ambulating with this quality analyst/technical writer at 10:15. Staff waited with pt. in lobby until picked up by Lindsay cardoso.
== END 2022-04-14 10:15 | disposition home or self-care (01) | DRG 885 ==
PROVIDERS: Admitting Provider Psychiatry & Neurology Psychiatry; Visit Provider Psychiatry & Neurology Psychiatry
DX: F33.9 Major depressive disorder, recurrent, unspecified (principal); R45.851 Suicidal ideations; E78.5 Hyperlipidemia, unspecified; Z87.891 Personal history of nicotine dependence; Z88.2 Allergy status to sulfonamides; Z88.6 Allergy status to analgesic agent; Z88.8 Allergy status to other drugs, medicaments and biological substances; Z79.899 Other long term (current) drug therapy
CPT/HCPCS: 36415; 80053; 80061